=== PATIENT | female | born 1965 | race Caucasian/White ===

== ENCOUNTER 2020-05-11 10:11 | Emergency (ER) | payer OTHER ==
[2020-05-11] MEDS ORDERED: SODIUM CHLORIDE 0.9% 1,000 ML IV STA (10:33)
--- NOTE | 2020-05-11 10:37 | ED ---
Chest Pain HPI - General Chief Complaint: Chest Pain Stated Complaint: Back pain Time Seen by Provider: 05/11/20 10:24 Source: patient, RN notes reviewed, old records reviewed Mode of arrival: ambulatory Limitations: no limitations - History of Present Illness Initial Comments: Patient's 54-year-old female presents emergency department today with chief complaint of one week of dull back pain with radiation towards the front of her chest. She reports she was seen at [facility] early in the week and was diagnosed with muscle spasm. She states the pain is not reproducible with movement. She's been taking anti-inflammatory medication and muscle relaxers without any relief of symptoms. Patient states that she's had no significant shortness of breath or nausea. She denies coughing. She denies any lower extremity pain or swelling. Patient states that she is a nonsmoker. She does have a history of hypertension which she takes atenolol. - Related Data Allergies Allergy/AdvReac Type Severity Reaction Status Date / Time shellfish derived [Shellfish] Allergy Anaphylaxis Verified 05/11/20 10:23 Review of Systems ROS Statement: Those systems with pertinent positive or pertinent negative responses have been documented in the HPI. ROS Other: All systems not noted in ROS Statement are negative. EKG Findings - EKG Comments: EKG Findings:: EKG shows normal sinus rhythm anterior infarct age and treatment. Abnormal EKG. Ventricular rate 65 bpm. Pulse 152 ms. She spiritism is 90 ms. QT QTc is 428/445 ms. Past Medical History Past Medical History: Hypertension History of Any Multi-Drug Resistant Organisms: None Reported Past Surgical History: Section, Hysterectomy Past Psychological History: No Psychological Hx Reported Smoking Status: Current every day smoker Past Alcohol Use History: Occasional Past Drug Use History: None Reported General Exam - General Exam Comments Initial Comments: 54-year-old female. Alert and oriented 3. Resting in bed. Appears in no significant distress. Limitations: no limitations General appearance: alert, in no apparent distress Head exam: Present: atraumatic, normocephalic, normal inspection Eye exam: Present: normal appearance, PERRL, EOMI. Absent: scleral icterus, conjunctival injection, periorbital swelling ENT exam: Present: normal exam, mucous membranes moist Neck exam: Present: normal inspection. Absent: tenderness, meningismus, lymphadenopathy Respiratory exam: Present: normal lung sounds bilaterally. Absent: respiratory distress, wheezes, rales, rhonchi, stridor Cardiovascular Exam: Present: regular rate, normal rhythm, normal heart sounds. Absent: systolic murmur, diastolic murmur, rubs, gallop, clicks GI/Abdominal exam: Present: soft, normal bowel sounds. Absent: distended, tenderness, guarding, rebound, rigid Extremities exam: Present: normal inspection, full ROM, normal capillary refill. Absent: tenderness, pedal edema, joint swelling, calf tenderness Back exam: Present: normal inspection Neurological exam: Present: alert, oriented X3, CN II-XII intact Psychiatric exam: Present: normal affect, normal mood Skin exam: Present: warm, dry, intact, normal color. Absent: rash Course Vital Signs 05/11/20 05/11/20 10:20 11:15 Temperature 98.1 F Pulse Rate 68 63 Respiratory 18 20 Rate Blood Pressure 138/84 141/90 O2 Sat by Pulse 98 100 Oximetry Chest Pain [facility] Patient is a 54-year-old female presents for 3 with one week of chest pain from her back towards the front of her chest and left side. She reports symptoms aren't improved with Ancef intramuscularly Motrin and Tylenol. Patient reports no significant cardiac history but does have history of hypertension. Patient's EKG was reviewed and negative for any ST change. Patient's labs reviewed and showed a positive d-dimer of 4.48. Discussed concern for possible PE. Patient underwent CT chest and she'll which was negative for acute pulmonary process no evidence of pulmonary embolism. Chest x-ray is negative for any acute cardiac pulmonary process. At this time patient's informed that I like to admit the Patient for further evaluation and cardiac workup due to persistent chest pain. She states that she cannot do this that she is in town on a conference. She states that she is here for work and her cat is at a hotel room that she will refuse to stay in the hospital. I discussed the Patient will not be leaving AMA. Patient is in sound mind and understands the risks including of bleeding is medical advice. Patient is also requesting something for pain on discharge or discussed anti-inflammatory medication to continue this at this time. Discussed to return to ED if alarming signs or symptoms occur. Disposition Clinical Impression: Chest pain, Back pain Disposition: Left Against Medical Advice Condition: Stable Instructions (If sedation given, give patient instructions): Chest Pain (ED) Additional Instructions: Use antiinflammatory medication, motrin and tylenol for pain. Return if symptoms worsen. Is patient prescribed a controlled substance at d/c from ED?: No Referrals: Nonstaff,Physician [Primary Care Provider] - 1-2 days Time of Disposition: 12:59
[2020-05-11] MEDS: SODIUM CHLORIDE 0.9% 1,000 ML IV STA ×2 (10:43→11:51)
[2020-05-11 10:47] LABS: Basophils # (A) 0.1 k/uL (0-0.2); Basophils % (A) 1 %; Eosinophils # (A) 0.1 k/uL (0-0.7); Eosinophils % (A) 2 %; HCT 43.8 % (34.0-46.0); HGB 14.1 gm/dL (11.4-16.0); Lymphocytes # (A) 2.5 k/uL (1.0-4.8); Lymphocytes % (A) 31 %; MCH 30.9 pg (25.0-35.0); MCHC 32.3 g/dL (31.0-37.0); MCV 95.7 fL (80.0-100.0); Mean Platelet Volume 9.5; Monocytes # (A) 0.6 k/uL (0-1.0); Monocytes % (A) 7 %; Neutrophils # (A) 4.6 k/uL (1.3-7.7); Neutrophils % (A) 58 %; Platelet Count 227 k/uL (150-450); RBC 4.58 m/uL (3.80-5.40); RDW 13.1 % (11.5-15.5); WBC 7.9 k/uL (3.8-10.6)
[2020-05-11] MEDS ORDERED: ASPIRIN 81 MG PO STA (10:51)
[2020-05-11] MEDS ORDERED: NITROGLYCERIN SL TABS 0.4 MG TAB SUBLINGUAL STA (10:51)
--- NOTE | 2020-05-11 11:09 | XR ---
EXAMINATION TYPE: XR chest 2V DATE OF EXAM: 05/11/2020 COMPARISON: NONE HISTORY: Chest pain TECHNIQUE: Frontal and lateral views of the chest are obtained. FINDINGS: There is no focal air space opacity. No evidence for pneumothorax. No pleural effusion. The cardiac silhouette size is within normal limits. The osseous structures are grossly intact. IMPRESSION: 1. No acute cardiopulmonary process.
[2020-05-11 11:15] LABS: ALT 21 U/L (4-34); AST 28 U/L (14-36); African American GFR (CKD) >90 (>60 ml/min/1.73 sqM); Albumin 4.3 g/dL (3.5-5.0); Alkaline Phosphatase 45 U/L (38-126); Amylase 51 U/L (30-110); Anion Gap 7 mmol/L; Blood Urea Nitrogen 13 mg/dL (7-17); Calcium 9.7 mg/dL (8.4-10.2); Carbon Dioxide 26 mmol/L (22-30); Chloride 103 mmol/L (98-107); Glucose 103 mg/dL (74-99); Magnesium 1.9 mg/dL (1.6-2.3); Non-African American GFR(CKD) >90 (>60 ml/min/1.73 sqM); Sodium 136 mmol/L (137-145); Total Bilirubin 0.7 mg/dL (0.2-1.3); Total Protein 6.8 g/dL (6.3-8.2)
[2020-05-11 11:17] LABS: INR 0.9 (<1.2); Prothrombin Time 9.8 sec (9.0-12.0)
[2020-05-11 11:18] VITALS: RESP 20
[2020-05-11 11:48] LABS: D-Dimer 4.48 mg/L FEU (<0.60)
--- NOTE | 2020-05-11 12:22 | CT ---
EXAMINATION TYPE: CT chest angio for PE DATE OF EXAM: 05/11/2020 COMPARISON: None HISTORY: Elevated d dimer, back pain CT DLP: 249.9 mGycm CONTRAST: CT chest with contrast and 3D reconstruction with MIP imaging is performed with IV Contrast, patient injected with 61 mL of Isovue 370. Contrast-enhanced CT of the chest was performed through the course of the pulmonary arteries with edmund g and mediastinal window settings submitted. 3D reconstruction with MIP imaging was also performed. PULMONARY ARTERIES: The pulmonary arteries and their major tributaries are patent. I do not see fish dence for sizable filling defect to suggest pulmonary embolic process. LUNGS: The lungs are clear and free of infiltrate. No evidence for atelectasis. No pulmonary nodule or mass is detected. No pleural effusion. MEDIASTINUM: Thoracic aorta is of normal caliber,however, evaluation is limited given timing of the contrast bolus. If there is concern for thoracic aortic pathology consider ADRIANE. Correlate clinicall y . The heart is not enlarged. No evidence for mediastinal mass. No mediastinal lymph nodes greater than 1cm. HILAR STRUCTURES: No evidence for mass. No hilar lymph nodes greater than 1 cm. UPPER ABDOMEN: No significant abnormality is seen. IMPRESSION: 1. No evidence for Pulmonary embolism at this time.
[2020-05-11 13:15] VITALS: BP 145/85; PULSE 69; TEMP 98.3
== END 2020-05-11 13:15 | disposition left against medical advice (07) ==
LOC: EC 10:11
DX: R07.9 Chest pain, unspecified (principal); M54.9 Dorsalgia, unspecified; R79.89 Other specified abnormal findings of blood chemistry; F17.200 Nicotine dependence, unspecified, uncomplicated; Z91.013 Allergy to seafood; Z53.29 Procedure and treatment not carried out because of patient's decision for other reasons
CPT/HCPCS: 36415; 93005; 85379; 83880; 80053; 82150; 83690; 83735; 84484; 85025; 85610; 85730; 71046; 71275; 99285; 96360; 96361; Q9967